=== PATIENT | male | born 1990 | race Caucasian/White ===

== ENCOUNTER 2020-08-12 23:47 | Emergency (ER) | payer SELFPAY ==
[~2020-08-12] VITALS: Ht 175.3 cm; Wt 95.3 kg
[2020-08-12 23:59] VITALS: BP 141/83
--- NOTE | 2020-08-13 | NUR ---
bibself c/o sudden onset sob, sweating and blurred vision. 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 pt appears anxious. pt aox4 rr even and unlabored. no sob noted. no nvd at this time. pt appears comfortable no acute distress. pt waiting for md lomas.
[2020-08-13] MEDS ORDERED: LORAZEPAM 1 MG TABLET ONE (00:27)
[2020-08-13] MEDS ORDERED: LORAZEPAM 1 MG TABLET PO ONE (00:30)
== END 2020-08-13 00:34 | disposition home or self-care (01) ==
LOC: ER 23:50
DX: F41.9 Anxiety disorder, unspecified (principal)